=== PATIENT | male | born 1985 | race Caucasian/White ===

== ENCOUNTER 2016-05-06 18:25 | Emergency (ER) | payer MEDICAID ==
[2016-05-06] MEDS ORDERED: CYCLOBENZAPRINE 10 MG TAB ONE (20:50)
[2016-05-06] MEDS ORDERED: ACETAMINOPHEN 325 MG TAB ONE (22:18)
[2016-05-06] MEDS ORDERED: LISINOPRIL 5 MG TAB PO ONE (22:20)
== END 2016-05-06 23:27 | disposition home or self-care (01) ==
LOC: ER 18:25
DX: R20.9 Unspecified disturbances of skin sensation (principal); Z79.899 Other long term (current) drug therapy; F17.210 Nicotine dependence, cigarettes, uncomplicated
CPT/HCPCS: 36415; 70450; 71020; 80053; 80307; 81003; 84439; 84443; 85025; 93005

== ENCOUNTER 2016-05-11 08:42 | Emergency (ER) | payer MEDICAID | END 2016-05-11 09:46 | disposition home or self-care (01) | LOC: ER 08:42 | DX: G47.00 Insomnia, unspecified (principal); F41.9 Anxiety disorder, unspecified; F43.10 Post-traumatic stress disorder, unspecified; Z79.899 Other long term (current) drug therapy; F17.210 Nicotine dependence, cigarettes, uncomplicated | CPT/HCPCS: 93005 ==